=== PATIENT | female | born 1975 | race Two or more races ===

== ENCOUNTER → 2024-08-01 | Outpatient (CLI) | payer OTHER, SELFPAY ==
--- NOTE | 2024-08-01 12:30 | XR_ITS ---
Examination: Transvaginal ultrasound of the pelvis, complete Technique: Transvaginal sonographic images pelvis performed using trinh scale imaging Exam date and time: August 01, 2024 1304 hours INDICATIONS: 5 cm uterine fundal mass on CT pelvis January 06, 2024 FINDINGS: Uterus 8.3 x 3.5 x 7.2 cm Left lateral uterine fundal mass 3.6 x 3.2 x 4.4 cm Endometrial stripe 0.2 cm Right ovary 3.6 x 2.3 x 2.0 cm arterial flow Left ovary 3.1 x 2.4 x 2.3 cm arterial flow IMPRESSION: Left lateral uterine fundal mass 3.6 x 3.2 x 4.4 cm Differential would include fibroid degeneration Recommend 3 month follow-up transvaginal pelvic sonography.
== END | disposition home or self-care (01) ==
PROVIDERS: Referring Provider Internal Medicine Hematology & Oncology; Visit Provider Internal Medicine Hematology & Oncology
DX: R19.00 Intra-abdominal and pelvic swelling, mass and lump, unspecified site (principal)
CPT/HCPCS: 76830

== ENCOUNTER → 2024-10-31 | Outpatient (CLI) | payer OTHER, SELFPAY ==
--- NOTE | 2024-10-31 10:00 | XR_ITS ---
Examination: Transvaginal ultrasound of the pelvis, complete Technique: Transvaginal sonographic images pelvis performed using trinh scale imaging Exam date and time: October 31, 2024 1050 hrs. Indications: Transvaginal pelvic sonogram August 01, 2024 Fundal uterine mass 4.4 cm. Findings: Uterus 7.4 cm endometrial stripe 0.4 cm Uterine fundal mass 3.3 x 2.9 x 3.5 cm Anterior uterine fundal mass 1.4 x 1.3 x 1.3 cm Right ovary 2.9 cm arterial flow Left ovary 3.2 cm arterial flow Impression: Uterine areas of fundal fibroid degeneration as above, recommend 6 month follow-up transvaginal pelvic sonography
== END | disposition home or self-care (01) ==
PROVIDERS: PCP Physician Assistant; Referring Provider Internal Medicine Hematology & Oncology; Visit Provider Internal Medicine Hematology & Oncology
DX: D25.9 Leiomyoma of uterus, unspecified (principal)
CPT/HCPCS: 76830

== ENCOUNTER → 2025-04-13 | Outpatient (CLI) | payer OTHER, SELFPAY ==
--- NOTE | 2025-04-13 13:15 | XR_ITS ---
Examination: Screening digital mammography, unilateral left Computer aided detection 3-D breast Tomosynthesis, unilateral Date and time of exam: April 13, 2025 1331 hours, comparison April 28, 2024 INDICATIONS: Personal history right breast cancer, patient feels a lump in the left breast beginning 3 weeks ago Indication: Screening Technique: Nonmagnified MLO, CC views of the left breast to been obtained, reconstructed from 3-D Tomosynthesis images. R2 computer aided detection program utilized for evaluation of suspicious masses and/or abnormal calcifications. 3-D Tomosynthesis images obtained. Findings: The breast is heterogeneously dense, which may obscure small masses At the marker site 6 mm nodule which projects 6:00 position left breast Impression: BI-RADS category 0: Incomplete: Additional imaging evaluation Recommend follow-up spot tomographic views of nodule with indistinct margins 6:00 position left breast as well as left breast sonography to complete the workup
== END | disposition home or self-care (01) ==
PROVIDERS: PCP Physician Assistant; Referring Provider Surgery; Visit Provider Surgery
DX: Z12.31 Encounter for screening mammogram for malignant neoplasm of breast (principal); N63.25 Unspecified lump in the left breast, overlapping quadrants; C50.511 Malignant neoplasm of lower-outer quadrant of right female breast
CPT/HCPCS: 77063; 77067

== ENCOUNTER → 2025-05-22 | Outpatient (CLI) | payer OTHER, SELFPAY ==
--- NOTE | 2025-05-22 | XR_ITS ---
Examination: Diagnostic digital mammography, unilateral, left Computer aided detection 3-D breast Tomosynthesis, unilateral Date and time of exam: May 22, 2025, 10:00 a.m. INDICATIONS: Mammogram April 13, 2025 6 mm nodule indistinct margins 6 o'clock position left breast Technique: Nonmagnified MLO, CC views of the left breast have been obtained, reconstructed from 3-D Tomosynthesis images. R2 computer aided detection program utilized for evaluation of suspicious masses and/or abnormal calcifications. 3-D Tomosynthesis images obtained. Findings: The breast is heterogeneously dense, which may obscure small masses 6 mm nodule is confirmed slightly outer left breast on the spot compression views Impression: BI-RADS category 3: Probably benign findings 1 additional 6-month left mammogram follow-up is needed
--- NOTE | 2025-05-22 09:15 | XR_ITS ---
Examination: Breast ultrasound, unilateral, left Date and time: May 22, 2025, 0917 hours INDICATIONS: Left breast pain 1 month, ultrasound April 28, 2024 3:00 nodule 12 mm, 6:00 nodule 11 mm Technique: Real-time trinh scale ultrasonographic imaging performed left breast including all 4 quadrants as well as nipple retroareolar and axillary region. Findings: Sonographic images left breast demonstrate multiple benign cysts. 4:00 nodule 6 x 5 mm, circumscribed IMPRESSION: BI-RADS Category 3: Probably benign findings 1 additional 6 left breast 6-month follow-up needed to document stability of 4:00 nodule described above
== END | disposition home or self-care (01) ==
PROVIDERS: PCP Physician Assistant; Referring Provider Surgery; Visit Provider Surgery
DX: R92.332 Mammographic heterogeneous density, left breast (principal); N63.23 Unspecified lump in the left breast, lower outer quadrant
CPT/HCPCS: 76641; 77061; 77065; G0279

== ENCOUNTER → 2025-06-06 | Outpatient (CLI) | payer OTHER, SELFPAY ==
--- NOTE | 2025-06-06 10:45 | XR_ITS ---
Examination: Transvaginal ultrasound of the pelvis, complete Technique: Transvaginal sonographic images pelvis performed using trinh scale imaging Exam date and time: June 06, 2025, 1058 hours, comparison October 31, 2024 INDICATIONS: Pelvic pain 2 years uterine fundal mass 3.5 cm 1.4 cm on ultrasound October 31, 2024. FINDINGS: Uterus 7.4 cm Left lateral uterine body mass 3.1 x 2.3 x 2.9 cm Endometrial stripe 0.4 cm Right ovary 2.9 cm arterial flow Left ovary obscured by bowel gas IMPRESSION: Uterine body area fibroid degeneration 3.1 x 2.3 x 2.9 cm.
== END | disposition home or self-care (01) ==
LOC: CDIM 10:36
PROVIDERS: PCP Physician Assistant; Referring Provider Internal Medicine Hematology & Oncology; Visit Provider Internal Medicine Hematology & Oncology
DX: D25.9 Leiomyoma of uterus, unspecified (principal)
CPT/HCPCS: 76830